=== PATIENT | female | born 1995 | race Caucasian/White ===

== ENCOUNTER 2024-10-26 08:22 | Emergency (ER) | payer OTHER, SELFPAY ==
[2024-10-26] VITALS (8 sets, daily range): BP systolic 104–139; BP diastolic 57–79; PULSE 64–88; RESP 14–23; TEMP 36.8; O2SAT 97–99; BMI 24.0
--- NOTE | 2024-10-26 08:34 | DI.RAD.S_ITS ---
PROCEDURE: XR CHEST 1V INDICATIONS: Chest Pain TECHNIQUE: One view of the chest was acquired. COMPARISON: None. FINDINGS: Surgical changes and devices: None. Lungs and pleura: Lungs are clear. No pleural effusions or pneumothorax. Mediastinum: Mediastinal contours appear normal. Heart size is normal. Bones and chest wall: No suspicious bony lesions. Overlying soft tissues appear unremarkable. IMPRESSION: No acute cardiopulmonary abnormality is seen. Dictated by: Ilsa Valdez M.D. on 10/26/2024 at 9:22 Approved by: Ilsa Valdez M.D. on 10/26/2024 at 9:23
--- NOTE | 2024-10-26 08:39 | EKG_ITS ---
[address] [address] Test Date: 2024-10-26 Pat Name: Yvette Haney Department: Room: Gender: Female [employer] Operator: MARIA GUADALUPE : 1995 Requested By: Order Number: [id number] Reading MD: Etienne Blevins MD Measurements Intervals [place] Rate: 65 P: 6 NH: 124 QRS: 72 QRSD: 80 T: 48 QT: 408 QTc: 424 Interpretive Statements Normal sinus rhythm Electronically Signed On 10-26-2024 9:50:49 PDT by Etienne Blevins MD
[2024-10-26 08:49] LABS: Add Manual Diff / Slide Review NO; Hematocrit 39.4 % (36-46); Hemoglobin 14.0 g/dL (12.0-16.0); Lymphocytes Absolute Auto 1000 /uL (1100-4500); Mean Corpuscular HGB Conc 35.6 % (30-36); Mean Corpuscular Hemoglobin 33.3 PG (26-34); Mean Corpuscular Volume 93.7 fL (80-100); Platelet Count 259 X10^3/uL (150-400)
[2024-10-26 08:51] LABS: INR 1.0 (0.9-1.3); Prothrombin Time 11.7 SECONDS (9.4-12.5)
--- NOTE | 2024-10-26 08:52 | ED.CHESTPAIN ---
HPI - Chest Pain General Chief Complaint: Chest Pain Stated Complaint: Chest pain, SOB, tunnel vision, shakes Time Seen by Provider: 10/26/24 08:51 Source: patient Mode of arrival: Ambulatory History of Present Illness HPI narrative: Patient is a healthy 28-year-old female presenting to day with heart palpitations. She reports it has been ongoing for about a week. Her watch notifies her when her heart rate is fast. She says it does wake her from her sleep she said last night it was up to 130. She is unsure how long it was there. She says she is palpitations and racing heart regularly she feels somewhat nauseous but no vomiting she has not passed out no fever no chills, no abdominal pain. She denies any shortness of breath no calf pain not on control, she only has 1 cup of coffee daily. No excessive caffeinated drinks she says those give her heart palpitations. She has not drink alcohol she does not smoke no marijuana use. No painful frequent urination denies chance of . Related Data Allergies Allergy/AdvReac Type Severity Reaction Status Date / Time amoxicillin Allergy Verified 10/26/24 08:33 Patient History Social History Smoking Status: Never smoker Smoking Status: Never smoker Exam Initial Vital Signs Initial Vital Signs: Vital Signs Temperature 98.2 F 10/26/24 08:25 Pulse Rate 76 10/26/24 08:25 Respiratory Rate 16 10/26/24 08:25 Blood Pressure 139/79 10/26/24 08:25 Pulse Oximetry 97 10/26/24 08:25 Oxygen Delivery Method Room Air 10/26/24 08:25 GENERAL: Alert well-appearing 28-year-old female and in no acute distress. HEENT: Head atraumatic,EOMI, pupils reactive, face symmetric, moist mucous membranes CARDIOVASCULAR: Regular rate and rhythm without murmurs, rubs or gallops. RESPIRATORY: Breath sounds equal bilaterally, no wheezes rales or rhonchi. ABDOMEN: Soft, nontender. Normoactive bowel sounds all 4 quadrants. No guarding or rebound. : No CVA tenderness EXTREMITIES: Normal range of motion, no clubbing or edema. Neurovascularly intact NEUROLOGICAL: Alert and oriented x4.Normal gait and speech. Cranial nerves II through XII grossly intact. SKIN: Warm, dry, no laceration, no petechiae, no rashes or lesions. Course Orders Ordered: ED Orders 10/26/24 08:30 Complete Blood Count AUTO DIFF Stat Comprehensive Metabolic Panel Stat D Dimer Stat Lipase Stat Magnesium Stat NT-proBNP (BNP-Adult 18+) Stat PTT Partial Thromboplastin [place] Stat Prothrombin Time INR Stat TSH [Thyroid Stimulating Hormone] Stat Troponin & CK Cardiac Panel Stat 10/26/24 08:34 XR chest 1V Stat EKG-12 Lead Stat Discontinued Medications Aspirin (Aspirin 81 Mg Chew Tab) 324 mg PO NOW ONE Stop: 10/26/24 08:35 Last Admin: 10/26/24 10:34 Dose: Not Given Documented By: MEL Sodium Chloride (Normal Saline 0.9%) 500 mls @ 1,000 mls/hr IV BOLUS ONE Stop: 10/26/24 10:01 Last Infusion: 10/26/24 10:34 Dose: Infused Documented By: Admin: 10/26/24 09:40 Dose: 1,000 mls/hr Documented By: MADELEINE Vital Signs Vital signs: Vital Signs - 8 hr 10/26/24 08:25 10/26/24 08:28 10/26/24 08:28 Temperature 98.2 F Pulse Rate 76 88 Respiratory Rate 16 Blood Pressure 139/79 139/79 Pulse Oximetry 97 97 Oxygen Delivery Method Room Air 10/26/24 08:30 10/26/24 08:30 10/26/24 09:00 Temperature Pulse Rate 75 73 Respiratory Rate 23 Blood Pressure 122/64 Pulse Oximetry 97 98 Oxygen Delivery Method 10/26/24 09:00 10/26/24 09:30 10/26/24 09:30 Temperature Pulse Rate 70 Respiratory Rate 16 Blood Pressure 113/65 112/58 L Pulse Oximetry 98 Oxygen Delivery Method 10/26/24 09:43 10/26/24 09:43 10/26/24 10:00 Temperature Pulse Rate 65 64 Respiratory Rate 19 14 Blood Pressure 106/57 L Pulse Oximetry 99 99 Oxygen Delivery Method 10/26/24 10:00 10/26/24 10:30 10/26/24 10:30 Temperature Pulse Rate 72 Respiratory Rate 23 Blood Pressure 106/58 L 104/61 Pulse Oximetry 99 Oxygen Delivery Method MDM - Chest Pain Lab Data 10/26/24 08:30 10/26/24 08:30 Labs: Lab Results 10/26/24 Range/Units 08:30 WBC 4.1 L (4.5-11.0) X10^3/uL RBC 4.21 (4.0-5.2) X10^6/uL Hgb 14.0 (12.0-16.0) g/dL Hct 39.4 (36-46) % MCV 93.7 (80-100) fL MCH 33.3 (26-34) PG MCHC 35.6 (30-36) % RDW 12.2 (11.6-14.8) % Plt Count 259 (150-400) X10^3/uL Neut % (Auto) 59.9 (50-75) % Lymph % (Auto) 25.2 (25-40) % [place] % (Auto) 8.3 (3-14) % Eos % (Auto) 5.3 H (2-4) % Baso % (Auto) 1.3 (0-2) % Neut # (Auto) 2500 (4953-3088) /uL Lymph # (Auto) 1000 L (0765-5176) /uL [place] # (Auto) 300 (0-900) /uL Eos # (Auto) 200 (0-450) /uL Baso # (Auto) 100 (0-100) /uL PT 11.7 (9.4-12.5) SECONDS INR 1.0 (0.9-1.3) APTT 35 (25.1-36.5) SECONDS D-Dimer < 215 (<500) ng/ml Sodium 138 (137-145) mmol/L Potassium 3.9 (3.4-5.1) mmol/L Chloride 103 (98-107) mmol/L Carbon Dioxide 28 (22-32) mmol/L BUN 10 (7-17) mg/dL Creatinine 0.76 (0.52-1.04) mg/dL Estimated GFR > 60 (>60) mL/min BUN/Creatinine Ratio 13.2 (6-22) Glucose 77 (70-99) mg/dL Calcium 9.7 (8.4-10.2) mg/dL Magnesium 1.9 (1.6-2.3) mg/dL Total Bilirubin 0.7 (0.2-1.3) mg/dL AST 25 (14-36) IU/L ALT 18 (<35) IU/L Alkaline Phosphatase 43 (38-126) U/L Total Creatine Kinase 58 (30-135) U/L Troponin I < 0.012 (0.01-0.034) ng/mL NT-Pro-B Natriuret Pep < 20 (<125) pg/mL Total Protein 7.8 (6.3-8.2) g/dL Albumin 4.9 (3.5-5.0) g/dL Globulin 2.9 (1.7-4.1) g/dL Albumin/Globulin Ratio 1.7 (1.0-2.8) Lipase 34 (23-300) U/L TSH 0.990 (0.47-4.68) uIU/mL Point of Care Testing Test Results Negative Urine Dip Bedside Urine Glucose Negative Bedside Urine Bilirubin - Negative Bedside Urine Ketone - Negative Urine Specific [place] 1.010 Bedside Urine Occult Blood - Negative Bedside Urine pH 7.5 Bedside Urine Protein - Negative Bedside Urine Urobilinogen - Negative Bedside Urine Nitrite - Negative Bedside Urine Leukocytes - Negative Esterase Imaging Data Chest x-ray: Radiologist's Impression: PROCEDURE: XR CHEST 1V INDICATIONS: Chest Pain TECHNIQUE: One view of the chest was acquired. COMPARISON: None. FINDINGS: Surgical changes and devices: None. Lungs and pleura: Lungs are clear. No pleural effusions or pneumothorax. Mediastinum: Mediastinal contours appear normal. Heart size is normal. Bones and chest wall: No suspicious bony lesions. Overlying soft tissues appear unremarkable. IMPRESSION: No acute cardiopulmonary abnormality is seen. Dictated by: Ilsa Valdez M.D. on 10/26/2024 at 9:22 ECG Data Attestation: I personally reviewed and interpreted this ECG as follows: Prior ECG tracings: not available for review Interpretation: Sinus rhythm rate 65 OK interval 124 QRS [address] changes no T-wave inversions no arrhythmia MDM Narrative Medical decision making narrative: MDM CC: Racing heart Complicating co-morbidities: None Data collected from: Patient Medical records reviewed: Not Differential considered: Arrhythmia SVT AFib POTS, DVT hyperthyroid Exam documented above, pertinent findings include: Patient appears well nontoxic heart rate is regular no evidence of fluid overload Lab Test results independently reviewed as above. Pertinent findings: No anemia no leukocytosis no electrolyte abnormalities D-dimer is less than 215 unlikely to be pulmonary embolism TSH is 0.99 Independently reviewed EKG as above sinus rhythm no arrhythmia appreciated Imaging studies independently reviewed: No acute cardiopulmonary process Consultations: None Treatments: IV fluids Re-evaluations: Patient has had no arrhythmia on the monitor Discussion: Patient is a healthy 28-year-old female who presents today with palpitations. She has had palpitations off and on for the last 1 week. It happens at rest it wakes her up from her sleep. Her watch tells her that a heart rate is in the 130s. A seems to be happening more frequently. She is not dizzy no evidence of syncope. D-dimer less than 215 unlikely to be a pulmonary embolism. No significant electrolyte abnormality. At this time no need for any further workup in the ED. However I do recommend that she follow-up for an outpatient Holter monitor Discharge Plan Departure Patient Disposition: Home Clinical Impression: Heart palpitations Instructions: DI for Arrhythmias Activity Restrictions/Additional Instructions: *You have been diagnosed with palpitations *What to do: At this time I recommend a Holter monitor which can be set up for with your primary care I would continue to wear your apple watch to monitor heart rate *Continue to take medications as directed *Follow up with your primary care provider in 2-3 days or call [phone] *Return to ER if you should have increasing palpitations dizziness lightheadedness weak or any new, worsening or concerning symptoms Referrals: Tee Tapia [Primary Care Provider, Family Practice] Stand Alone Forms: Patient Portal/API
[2024-10-26 08:54] LABS: PTT Partial Thromboplastin Tim 35 SECONDS (25.1-36.5)
[2024-10-26 08:56] LABS: Alanine Aminotransferase 18 IU/L (<35); Albumin 4.9 g/dL (3.5-5.0); Albumin Globulin Ratio 1.7 (1.0-2.8); Alkaline Phosphatase 43 U/L (38-126); Blood Urea Nitrogen 10 mg/dL (7-17); Calcium 9.7 mg/dL (8.4-10.2); Carbon Dioxide 28 mmol/L (22-32); Chloride 103 mmol/L (98-107); Creatine Kinase 58 U/L (30-135); Estimated Glomerular Filt Rate > 60 mL/min (>60); Globulin 2.9 g/dL (1.7-4.1); Glucose 77 mg/dL (70-99); HEMOLYSIS < 15 (0-50); Lipase 34 U/L (23-300); Magnesium 1.9 mg/dL (1.6-2.3); Potassium 3.9 mmol/L (3.4-5.1); Sodium 138 mmol/L (137-145); Total Protein 7.8 g/dL (6.3-8.2)
[2024-10-26 09:08] LABS: NT-proBNP (BNP-Adult 18+) < 20 pg/mL (<125); Troponin I < 0.012 ng/mL (0.01-0.034)
[2024-10-26] MEDS: SODIUM CHLORIDE 0.9% 500 ML 1000 ML IV (09:40)
[2024-10-26 10:07] LABS: Thyroid Stimulating Hormone 0.990 uIU/mL (0.47-4.68)
== END 2024-10-26 10:49 | disposition home or self-care (01) ==
PROVIDERS: Emergency Provider Emergency Medicine
DX: R00.2 Palpitations (principal); R07.9 Chest pain, unspecified
CPT/HCPCS: 36415; 71045; 80053; 81003; 81025; 82550; 83690; 83735; 83880; 84443; 84484; 85025; 85379; 85610; 85730; 93005; 93010; 96360; 99284